=== PATIENT | male | born 1995 | race Caucasian/White ===

== ENCOUNTER 2022-03-02 23:47 | Emergency (ER) | payer SELFPAY ==
[~2022-03-02] VITALS: Ht 170.2 cm; Wt 70.3 kg
[2022-03-03 00:08] VITALS: BP 123/78
--- NOTE | 2022-03-03 00:19 | NUR ---
Patient discharged to home in stable condition. Written and verbal after care instructions given. Patient verbalizes understanding of instruction. Pt ambulatory with a steady gait
== END 2022-03-03 00:19 | disposition home or self-care (01) ==
LOC: ER 03-03 00:05
DX: S01.01XA Laceration without foreign body of scalp, initial encounter (principal); W22.8XXA Striking against or struck by other objects, initial encounter; Y93.89 Activity, other specified; Y92.89 Other specified places as the place of occurrence of the external cause; Y99.8 Other external cause status